=== PATIENT | female | born 1950 | race American Indian/Alaskan Native ===

== ENCOUNTER 2018-01-07 16:03 | Emergency (ER) | payer MEDICARE ==
[2018-01-07] MEDS ORDERED: NACL 0.9% 500 ML 500 ML IV ONE (16:16)
[2018-01-07] MEDS ORDERED: ZOFRAN IV ONE ×2 (16:16→18:24)
--- NOTE | 2018-01-07 16:18 | Emergency Department Report ---
Blank Doc - Documentation Documentation: Patient is 67 years old female history of diabetes. Patient presented to the ER complaining of abdominal pain, crampy in nature associated with nausea and vomiting and diarrhea. Patient stated that she is unable to keep anything down since Monday. She also complaining of generalized weakness. Patient will need further evaluation so patient will be moved to our main ED.
[2018-01-07 16:38] LABS: Basophils % (Auto) 0.5 % (0.0-1.8); Eosinophils # (Auto) 0.1 K/mm3 (0.0-0.4); Eosinophils % (Auto) 1.6 % (0.0-4.3); Hematocrit 35.7 % (30.3-42.9); Lymphocytes # (Auto) 2.5 K/mm3 (1.2-5.4); Lymphocytes % (Auto) 29.5 % (13.4-35.0); Mean Corpuscular HGB Conc 31 % (30-34); Mean Corpuscular Hemoglobin 27 pg (28-32); Mean Corpuscular Volume 88 fl (79-97); Monocytes # (Auto) 0.6 K/mm3 (0.0-0.8); Monocytes % (Auto) 7.1 % (0.0-7.3); Platelet Count 326 K/mm3 (140-440); Red Blood Count 4.07 M/mm3 (3.65-5.03); Red Cell Distribution Width 15.6 % (13.2-15.2)
[2018-01-07 16:50] LABS: Alanine Aminotransferase 13 units/L (7-56); Albumin 4.2 g/dL (3.9-5); BUN/Creatinine Ratio 14; Blood Urea Nitrogen 10 mg/dL (7-17); Calcium 9.6 mg/dL (8.4-10.2); Hemolysis Index 13; Lipase 45 units/L (13-60)
[2018-01-07 16:55] LABS: Bilirubin,Direct < 0.2 mg/dL (0-0.2)
--- NOTE | 2018-01-07 17:00 | Emergency Department Report ---
HPI - General Chief Complaint: Abdominal Pain Time Seen by Provider: 01/07/18 16:14 - [facility] HPI: Room 24 The patient is a 67-year-old female presented with a chief complaint of abdominal pain. The patient states her symptoms began 6 days ago with nausea and vomiting that has been intermittent. The patient states she also developed diffuse abdominal pain 6 days ago. Patient denies fever, dysuria, hematuria or recent antibiotic use. The patient states she had a small amount of diarrhea this morning. The patient states she's had a decreased appetite. 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 - Surgical History Additional Surgical History: cataracts - Family History Family history: no significant - Social History Smoking Status: Never Smoker Substance Use Type: None - Medications Home Medications: Home Medications Medication Instructions Recorded Confirmed Last Taken Type Famotidine [Pepcid] 20 mg PO BID #20 tablet 01/07/18 Unknown Rx HYDROcodone/APAP 5-325 [[place] 1 - 2 each PO Q6HR PRN #14 tablet 01/07/18 Unknown Rx 5/325] Promethazine [Phenergan TAB] 25 mg PO Q6HR PRN #20 tab 01/07/18 Unknown Rx Promethazine [Phenergan] 25 mg MA Q6HR PRN #5 supp.rect 01/07/18 Unknown Rx ED Review of Systems ROS: Stated complaint: VOMITTING,ABD PAIN,DIARRHEA Other details as noted in HPI Constitutional: denies: fever Gastrointestinal: abdominal pain, nausea, vomiting, diarrhea Genitourinary: denies: dysuria, hematuria Physical Exam - Physical Exam Vital Signs: Vital Signs 01/07/18 16:08 Temperature 97.6 F Pulse Rate 99 H Respiratory 18 Rate Blood Pressure 184/100 O2 Sat by Pulse 99 Oximetry Physical Exam: GENERAL: The patient is well-developed well-nourished female sitting on stretcher not appearing to be in acute distress. [] HEENT: Normocephalic. Atraumatic. Extraocular motions are intact. Patient has moist mucous membranes. NECK: Supple. Trachea midline CHEST/LUNGS: Clear to auscultation. There is no respiratory distress noted. HEART/CARDIOVASCULAR: Regular. There is no tachycardia. There is no gallop rub or murmur. ABDOMEN: Abdomen is soft, with discomfort to palpation in all quadrants except the left upper quadrant. Patient has normal bowel sounds. There is no abdominal distention. SKIN: There is no rash. There is no edema. There is no diaphoresis. NEURO: The patient is awake, alert, and oriented. The patient is cooperative. The patient has normal speech MUSCULOSKELETAL: There is no evidence of acute injury. ED Course Vital Signs 01/07/18 16:08 Temperature 97.6 F Pulse Rate 99 H Respiratory 18 Rate Blood Pressure 184/100 O2 Sat by Pulse 99 Oximetry ED Medical Decision Making - Lab Data Result diagrams: 01/07/18 16:22 01/07/18 16:22 Laboratory Tests 01/07/18 01/07/18 16:22 16:22 WBC 8.4 RBC 4.07 Hgb 11.0 Hct 35.7 MCV 88 MCH 27 L MCHC 31 RDW 15.6 H Plt Count 326 Lymph % (Auto) 29.5 [place] % (Auto) 7.1 Eos % (Auto) 1.6 Baso % (Auto) 0.5 Lymph # 2.5 [place] # 0.6 Eos # 0.1 Baso # 0.0 Seg Neutrophils % 61.3 Seg Neutrophils # 5.1 Sodium 137 Potassium 3.5 L Chloride 95.0 L Carbon Dioxide 28 Anion Gap 18 BUN 10 Creatinine 0.7 Estimated GFR > 60 BUN/Creatinine Ratio 14 Glucose 158 H Calcium 9.6 Total Bilirubin 0.30 Direct Bilirubin < 0.2 Indirect Bilirubin 0.1 AST 16 ALT 13 Alkaline Phosphatase 65 Total Protein 7.8 Albumin 4.2 Albumin/Globulin Ratio 1.2 Lipase 45 - Radiology Data Radiology results: report reviewed (CT abdomen and pelvis), image reviewed (CT abdomen and pelvis) [facility] [address] [place] [address] Cat Scan Report Signed Patient: SAWYER GOMES MR#: [id number] : 1950 Acct:[id number] Age/Sex: 67 / F ADM Date: 01/07/18 Loc: ED Attending Dr: Ordering Physician: MELINDA BENOIT MD Date of Service: 04/29/18 Procedure(s): CT abdomen pelvis w con Accession Number(s): [id number] cc: MELINDA BENOIT MD FINAL REPORT EXAM: CT ABDOMEN PELVIS W CON HISTORY: diffuse abdominal pain TECHNIQUE: Spiral CT scanning of the abdomen and pelvis after the uneventful administration of IV contrast. Multiplanar reformations. 100 mL Omnipaque IV. PRIORS: None. FINDINGS: Abdomen: Visualized lung bases grossly unremarkable. Probable tiny gallstones in the dependent portion the gallbladder without significant pericholecystic fluid. Liver shows diffusely decreased attenuation without focal abnormality. Spleen without significant abnormality. Pancreas without significant abnormality. Probable small bilateral renal cysts, largest in right renal lower pole measuring approximately 1.2 cm. No apparent renal calcifications or significant hydronephrosis. Adrenal glands without significant abnormality. Pelvis: Bowel grossly unremarkable, with moderate-large amount of retained stool. Appendix within normal limits. No significant free peritoneal fluid, discrete abscess or apparent adenopathy. Abdominal aorta non-aneurysmal. Uterus prominent, with lobular margins. Mild degenerative changes in thoracolumbar spine. IMPRESSION: 1. Probable cholelithiasis. 2. Findings compatible with fatty infiltration in the liver. 3. Findings suggestive of constipation. 4. Probable leiomyomatous change in the uterus. . Transcribed By: [facility] Dictated By: GAYE BROWN MD Electronically Authenticated By: GAYE BROWN MD Signed Date/Time: 01/07/181811 DD/ 11 TD/TT: 01/07/181811 - Differential Diagnosis gastritis, peptic ulcer disease, GERD, pancreatitis, gastroenteritis Critical care attestation.: If time is entered above; I have spent that time in minutes in the direct care of this critically ill patient, excluding procedure time. ED Disposition Clinical Impression: Acute abdominal pain, Cholelithiasis, Nausea & vomiting Disposition: DC-01 TO HOME OR SELFCARE Is pt being admited?: No Does the pt Need Aspirin: No Condition: Stable Instructions: Abdominal Pain (ED) Additional Instructions: Return to the emergency department immediately should you develop worsening symptoms, fever, inability to tolerate food or liquid or any other concerns. 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 Please follow up with him for further evaluation) Time of Disposition: 18:28
[2018-01-07] MEDS ORDERED: PEPCID IV ONE (17:01)
[2018-01-07] MEDS ORDERED: MORPHINE IV ONE (17:01)
[2018-01-07] MEDS ORDERED: LIDOCAINE VISCOUS 2% PO ONE (17:02)
[2018-01-07] MEDS ORDERED: ALUM-MAG HYDROX-SIMETH 200-200-20MG/5ML PO ONE (17:02)
--- NOTE | 2018-01-07 18:17 | Cat Scan Report ---
FINAL REPORT EXAM: CT ABDOMEN PELVIS W CON HISTORY: diffuse abdominal pain TECHNIQUE: Spiral CT scanning of the abdomen and pelvis after the uneventful administration of IV contrast. Multiplanar reformations. 100 mL Omnipaque IV. PRIORS: None. FINDINGS: Abdomen: Visualized lung bases grossly unremarkable. Probable tiny gallstones in the dependent portion the gallbladder without significant pericholecystic fluid. Liver shows diffusely decreased attenuation without focal abnormality. Spleen without significant abnormality. Pancreas without significant abnormality. Probable small bilateral renal cysts, largest in right renal lower pole measuring approximately 1.2 cm. No apparent renal calcifications or significant hydronephrosis. Adrenal glands without significant abnormality. Pelvis: Bowel grossly unremarkable, with moderate-large amount of retained stool. Appendix within normal limits. No significant free peritoneal fluid, discrete abscess or apparent adenopathy. Abdominal aorta non-aneurysmal. Uterus prominent, with lobular margins. Mild degenerative changes in thoracolumbar spine. IMPRESSION: 1. Probable cholelithiasis. 2. Findings compatible with fatty infiltration in the liver. 3. Findings suggestive of constipation. 4. Probable leiomyomatous change in the uterus. .
[2018-01-07] MEDS ORDERED: REGLAN IV ONE (18:24)
[2018-01-07 18:33] LABS: Bilirubin,Urine NEG (Negative); Blood,Urine NEG (Negative); Color,Urine Straw (Yellow); Protein,Urine <15 mg/dL mg/dL (Negative); Urobilinogen,Urine < 2.0 mg/dL (<2.0)
[2018-01-07 18:44] VITALS: BP 175/95
== END 2018-01-07 18:44 | disposition home or self-care (01) ==
LOC: ED 16:03
DX: K80.20 Calculus of gallbladder without cholecystitis without obstruction (principal); R11.2 Nausea with vomiting, unspecified; R10.9 Unspecified abdominal pain; I10 Essential (primary) hypertension; E11.9 Type 2 diabetes mellitus without complications
CPT/HCPCS: 36415; 74177; 80048; 80074; 81001; 83690; 85025; 96374; 96375; 96376; 99284; J2270; J2405; J2765; J7040; Q9967

== ENCOUNTER 2018-01-17 22:26 | Emergency (ER) | payer MEDICARE ==
[2018-01-18 00:13] LABS: Basophils % (Auto) 0.5 % (0.0-1.8); Eosinophils # (Auto) 0.2 K/mm3 (0.0-0.4); Hematocrit 33.7 % (30.3-42.9); Hemoglobin 10.8 gm/dl (10.1-14.3); Lymphocytes # (Auto) 2.5 K/mm3 (1.2-5.4); Lymphocytes % (Auto) 28.4 % (13.4-35.0); Mean Corpuscular HGB Conc 32 % (30-34); Mean Corpuscular Hemoglobin 28 pg (28-32); Mean Corpuscular Volume 87 fl (79-97); Monocytes # (Auto) 0.7 K/mm3 (0.0-0.8); Platelet Count 249 K/mm3 (140-440); Red Blood Count 3.89 M/mm3 (3.65-5.03); Red Cell Distribution Width 15.9 % (13.2-15.2)
[2018-01-18 00:32] LABS: Creatine Kinase MB 2.8 ng/mL (0.0-4.0)
[2018-01-18 00:33] LABS: Alanine Aminotransferase 14 units/L (7-56); Albumin 4.2 g/dL (3.9-5); BUN/Creatinine Ratio 16; Blood Urea Nitrogen 13 mg/dL (7-17); Calcium 9.5 mg/dL (8.4-10.2); Hemolysis Index 20; Lipase 41 units/L (13-60)
[2018-01-18] MEDS ORDERED: ZOFRAN IV ONE (02:53)
[2018-01-18] MEDS ORDERED: NACL 0.9% 1000 ML 1,000 ML IV ONE (02:53)
--- NOTE | 2018-01-18 02:56 | Emergency Department Report ---
ED Abdominal Pain HPI - General Chief Complaint: Nausea/Vomiting/Diarrhea Stated Complaint: DIZZINESS; N/V Time Seen by Provider: 01/18/18 02:47 Source: patient Mode of arrival: Ambulatory Limitations: No Limitations - History of Present Illness Initial Comments: Patient is 67 years old female history of hypertension and diabetes. Patient presented to the ER complaining of several days of abdominal pain nausea vomiting and diarrhea. Patient stated that she is feeling weak all over. She denied any chest pain or shortness of breath or cough. No fever. MD Complaint: abdominal pain -: days(s) Location: diffuse Radiation: none Migration to: no migration Severity: moderate Quality: cramping Consistency: constant Associated Symptoms: nausea, vomiting, diarrhea - Related Data Previous Rx's Medication Instructions Recorded Last Taken Type Famotidine [Pepcid] 20 mg PO BID #20 tablet 01/07/18 Unknown Rx HYDROcodone/APAP 5-325 [[place] 1 - 2 each PO Q6HR PRN #14 tablet 01/07/18 Unknown Rx 5/325] Promethazine [Phenergan TAB] 25 mg PO Q6HR PRN #20 tab 01/07/18 Unknown Rx Promethazine [Phenergan] [address] Q6HR PRN #5 supp.rect 01/07/18 Unknown Rx Allergies Allergy/AdvReac Type Severity Reaction Status Date / Time aspirin Allergy Shortness Verified 01/07/18 16:11 of Breath ED Review of Systems ROS: Stated complaint: DIZZINESS; N/V Other details as noted in HPI Comment: All other systems reviewed and negative Respiratory: denies: cough, orthopnea, shortness of breath, SOB with exertion, SOB at rest Cardiovascular: denies: chest pain, palpitations Gastrointestinal: abdominal pain, nausea, vomiting, diarrhea. 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 - Surgical History Additional Surgical History: cataracts - Social History Smoking Status: Never Smoker Substance Use Type: None - Medications Home Medications: Home Medications Medication Instructions Recorded Confirmed Last Taken Type Famotidine [Pepcid] 20 mg PO BID #20 tablet 01/07/18 Unknown Rx HYDROcodone/APAP 5-325 [[place] 1 - 2 each PO Q6HR PRN #14 tablet 01/07/18 Unknown Rx 5/325] Promethazine [Phenergan TAB] 25 mg PO Q6HR PRN #20 tab 01/07/18 Unknown Rx Promethazine [Phenergan] [address] Q6HR PRN #5 supp.rect 01/07/18 Unknown Rx ED Physical Exam - General Limitations: No Limitations General appearance: alert, in no apparent distress - Head Head exam: Present: atraumatic, normocephalic, normal inspection - Eye Eye exam: Present: normal appearance, PERRL - ENT ENT exam: Present: normal exam, normal orophraynx, mucous membranes moist - Neck Neck exam: Present: normal inspection, full ROM. Absent: tenderness, meningismus, lymphadenopathy, thyromegaly - Respiratory Respiratory exam: Present: normal lung sounds bilaterally. Absent: respiratory distress, wheezes, rales, rhonchi, stridor, chest wall tenderness, accessory muscle use, decreased breath sounds, prolonged expiratory - Cardiovascular Cardiovascular Exam: Present: regular rate, normal rhythm, normal heart sounds - GI/Abdominal GI/Abdominal exam: Present: soft, tenderness (diffuse), normal bowel sounds. Absent: distended, guarding, rebound, rigid, organomegaly, mass, bruit, pulsatile mass, hernia - Extremities Exam Extremities exam: Present: normal inspection, full ROM, normal capillary refill - Back Exam Back exam: Present: normal inspection, full ROM. Absent: tenderness, CVA tenderness (R), CVA tenderness (L), muscle spasm, paraspinal tenderness, vertebral tenderness, rash noted - Neurological Exam Neurological exam: Present: alert, oriented X3, CN II-XII intact, normal gait, reflexes normal - Skin Skin exam: Present: warm, intact, normal color ED Course Vital Signs 01/17/18 01/17/18 01/18/18 23:16 23:24 01:40 Temperature 99.1 F 99.1 F Pulse Rate 96 H 95 H 74 Respiratory 16 18 Rate Blood Pressure 158/84 158/84 O2 Sat by Pulse 99 97 Oximetry 01/18/18 01/18/18 01/18/18 01:46 02:00 02:10 Temperature 99.0 F Pulse Rate 82 81 Respiratory 18 Rate Blood Pressure 159/94 O2 Sat by Pulse 100 Oximetry - Reevaluation(s) Reevaluation #1: 01/18/18 05:01 Patient stated that she is feeling much better. Her abdomen is soft nontender. CT abdomen and pelvis did not show anything acute. I advised patient to drink more fluids and follow up with her primary care physician in the next 2-3 days. I also advised to return to the ER if her symptoms are not improving. ED Medical Decision Making - Lab Data Result diagrams: 01/17/18 23:56 01/17/18 23:56 Critical care attestation.: If time is entered above; I have spent that time in minutes in the direct care of this critically ill patient, excluding procedure time. ED Disposition Clinical Impression: Nausea & vomiting, Abdominal pain Disposition: DC-01 TO HOME OR SELFCARE Is pt being admited?: No Condition: Stable Instructions: Abdominal Pain (ED), Acute Nausea and Vomiting (ED) Referrals: PRIMARY CARE, [Primary Care Provider] - 3-5 Days
--- NOTE | 2018-01-18 04:13 | Cat Scan Report ---
FINAL REPORT PROCEDURE: CT ABDOMEN PELVIS W CON TECHNIQUE: Computerized axial tomography of the abdomen and pelvis was performed after the IV injection of iodinated nonionic contrast. HISTORY: abdominal pain COMPARISON: 01/07/2018 FINDINGS: Visualized lower thorax: No significant abnormality. Liver: Normal size and attenuation. Spleen: Normal size and attenuation. Gallbladder and biliary system: Stones identified within the gallbladder lumen. No dilatation of the biliary ductal system. Pancreas: Normal. Adrenals: Normal. Kidneys: Normal. GI tract: No obstruction. No ileus or enteritis. The cecum, appendix and colon are normal.. Lymph nodes and mesentery: Normal. Vasculature: Normal. Bladder: Normal. Reproductive organs: Normal. Peritoneum: No free fluid. Musculoskeletal structures: No significant abnormality. Other: None. IMPRESSION: There is no evidence of intestinal or urinary tract obstruction. No ileus or enteritis. The appendix is normal.
[2018-01-18 05:26] LABS: Bacteria,Urine 3+ /HPF (Negative); Bilirubin,Urine NEG (Negative); Blood,Urine NEG (Negative); Color,Urine Straw (Yellow); Mucus,Urine FEW /HPF; Protein,Urine <15 mg/dL mg/dL (Negative); Urobilinogen,Urine < 2.0 mg/dL (<2.0)
[2018-01-18 07:02] VITALS: BP 163/97
== END 2018-01-18 07:05 | disposition home or self-care (01) ==
LOC: ED 22:26
DX: R11.2 Nausea with vomiting, unspecified (principal); R10.84 Generalized abdominal pain; R19.7 Diarrhea, unspecified; I10 Essential (primary) hypertension; E11.9 Type 2 diabetes mellitus without complications; Z88.6 Allergy status to analgesic agent
CPT/HCPCS: 36415; 74177; 80053; 81001; 82550; 82553; 83690; 84484; 85025; 93005; 93010; 96361; 96374; 99284; J2405; J7030; Q9967